=== PATIENT | female | born 1960 | race Caucasian/White ===

== ENCOUNTER 2017-12-02 15:11 | Emergency (ER) | payer MEDICAID ==
[~2017-12-02] VITALS: Ht 165.1 cm; Wt 52.2 kg
[~2017-12-02 15:11] MED LIST: ABILIFY2 MG ORAL; NORCO 5-325 TA1 EACH ORAL; TRAZODONE HCL150 MG ORAL; VENLAFAXINE H37.5 M1 ORAL
--- NOTE | 2017-12-02 15:33 | Emergency Room Report ---
History of Present Illness General Chief Complaint: Lower Extremity Injury Source: Patient Present Illness HPI 57-year-old female patient presents ER complaining of right lower extremity pain for the past 10 days. Reports that she fell onto her right side from a squatted position 10 days ago while feeling dizzy. Reports history of feeling dizzy, states that when she squats down symptoms improve when she stands up they worsen. Denies hitting her head, vision loss, tinnitus, vomiting. Denies chest pain, shortness of breath, abdominal pain. Denies history of heart attack or stroke. Not taking any blood thinners. Reports came to the ER today with her friend advised her to, states that she was waiting to go see her doctor in [place] but was unable to get an appointment sooner so she agreed to come into the ER today. Reports pain with ambulation. Reports pain on in her right side of thigh. Denies fever. Reports hx of PTSD, takes trazodone and Abilify, seen by outpatient clinic for treatment. Denies dysuria, hematuria, frequency, vaginal discharge. DEnies hx of diabetes. Allergies: Coded Allergies: NO KNOWN DRUG ALLERGIES (Unverified Allergy, Unknown, 09/05/14) Patient History Past Medical History: see triage record Last Menstrual Period: NA Reviewed Nursing Documentation: PMH: Agreed; PSxH: Agreed Nursing Documentation-PMH Past Medical History: No Stated History Review of Systems All Other Systems: negative except mentioned in HPI Physical Exam Vital Signs Date Time Temp Pulse Resp B/P (MAP) Pulse Ox O2 Delivery O2 Flow Rate FiO2 12/02/17 15:16 97.8 118 18 119/74 96 Room Air 97.9 Sp02 EP Interpretation: reviewed, normal General Appearance: well appearing, no apparent distress, alert, GCS 15, non- toxic Head: normocephalic, atraumatic Eyes: bilateral eye normal inspection, bilateral eye PERRL ENT: hearing grossly normal, normal pharynx, no angioedema, normal voice, uvula midline, moist mucus membranes Neck: full range of motion Respiratory: lungs clear, normal breath sounds, no rhonchi, no respiratory distress, no accessory muscle use, no wheezing, speaking full sentences Cardiovascular #1: regular rate, rhythm, no edema Gastrointestinal: non tender, soft, no mass, non-distended, no guarding, no rebound Genitourinary: no CVA tenderness Musculoskeletal: back normal, digits/nails normal, gait/station normal, normal range of motion, no calf tenderness, pelvis stable, Josh's Sign negative, other - NVI, no leg length discrepancy, leg not held in abduction or abduction, tender - proximal rights inner thigh, no erythema or edema Neurologic: alert, oriented x3, responsive, motor strength/tone normal, SLR negative, sensory intact Psychiatric: mood/affect normal Skin: no rash Medical Decision Making PA Attestation Dr. Rodarte is my supervising Physician whom patient management has been discussed with. Diagnostic Impression: Primary Impression: Intertrochanteric fracture Additional Impressions: UTI (urinary tract infection) Hx of dizziness ER Course Pt. presents to the ED c/o right leg pain status post dizziness causing fall. Denies dizziness currently. Ddx considered but are not limited to sprain, strain, fracture, dislocation, orthostatic hypotension, LA, electrolyte abnormality, dehydration. Vital signs: are WNL, pt. is afebrile, patient is tachycardic, denies chest pain , shortness of breath, abdominal pain. Ordered EKG. ER COURSE: EKG shows sinus tachycardia, no ST elevations or atrial fibrillation, will order cardiac labs to further evaluate tachycardia and history of dizziness. ordered chest x-ray, cardiac labs and fluids. orthostatic vitals showed no orthostatic hypotension. Provided with pain medication. An X-ray of the pelvis shows intertrochanteric fracture An X-ray of the femur right shows intertrochanteric fracture Discussed results with patient. Will admit patient for fracture. Needs orthopedic evaluation. Elevated pulse possibly due to pain follow-up with primary care provider for further cardiac referral and evaluation. CXR negative for acute disease per the preliminary reading. CBC no elevation in WBCs, H&H normal CMP unremarkable, mild elevation of LFTs and alkaline phosphatase, likely due to fracture UA shows elevation WBCs and urine bacteria, probable UTI, will provide patient with first dose of antibiotics in the ER, will provide with shot of Rocephin. Troponin negative CK CK-MB within normal limits Cranial nerves intact assessment, no focal neural deficits, EOMs intact, denies vertigo, denies dizziness currently, low suspicion for intracranial pathology, does not require CT of head at this time. Due to chronicity of dizziness symptoms, no ST elevations noted on EKG, troponin negative, will require admission for further workup. recheck vitals, patient will longer tachycardic, initial tachycardia may have been related to pain. Due to insurance patient to be transferred to another hospital to care of Dr. Josue. consult with Dr. Josue, will accept patient. - Please note that this Emergency Department Report was dictated using [employer] DX[employer]ior service aide technology software, occasionally this can lead to erroneous entry secondary to interpretation by the dictation equipment. Labs Test 12/02/17 16:15 White Blood Count 7.4 K/UL (4.8-10.8) Red Blood Count 5.27 M/UL (4.20-5.40) Hemoglobin 14.0 G/DL (12.0-16.0) Hematocrit 44.1 % (37.0-47.0) Mean Corpuscular Volume 84 FL (80-99) Mean Corpuscular Hemoglobin 26.6 PG (27.0-31.0) Mean Corpuscular Hemoglobin Concent 31.8 G/DL (32.0-36.0) Red Cell Distribution Width 12.8 % (11.6-14.8) Platelet Count 309 K/UL (150-450) Mean Platelet Volume 6.0 FL (6.5-10.1) Neutrophils (%) (Auto) 62.5 % (45.0-75.0) Lymphocytes (%) (Auto) 26.5 % (20.0-45.0) Monocytes (%) (Auto) 5.8 % (1.0-10.0) Eosinophils (%) (Auto) 3.3 % (0.0-3.0) Basophils (%) (Auto) 1.9 % (0.0-2.0) Urine Color Cyndi Urine Appearance Slightly cloudy Urine pH 5 (4.5-8.0) Urine Specific Page 1.025 (1.005-1.035) Urine Protein 1+ (NEGATIVE) Urine Glucose (UA) Negative (NEGATIVE) Urine Ketones Negative (NEGATIVE) Urine Blood 1+ (NEGATIVE) Urine Nitrite Negative (NEGATIVE) Urine Bilirubin 1+ (NEGATIVE) Urine Ictotest Negative (NEGATIVE) Urine Urobilinogen 1 MG/DL (0.0-1.0) Urine Leukocyte Esterase 3+ (NEGATIVE) Urine RBC 2-4 /HPF (0 - 2) Urine WBC 30-40 /HPF (0 - 2) Urine Squamous Epithelial Cells Many /LPF (NONE/OCC) Urine Calcium Oxalate Crystals Many /LPF (NONE) Urine Bacteria Moderate /HPF (NONE) Sodium Level 139 MMOL/L (136-145) Potassium Level 4.0 MMOL/L (3.5-5.1) Chloride Level 102 MMOL/L (98-107) Carbon Dioxide Level 32 MMOL/L (21-32) Anion Gap 5 mmol/L (5-15) Blood Urea Nitrogen 14 mg/dL (7-18) Creatinine 0.9 MG/DL (0.55-1.30) Estimat Glomerular Filtration Rate > 60 mL/min (>60) Glucose Level 140 MG/DL (74-106) Calcium Level 10.6 MG/DL (8.5-10.1) Total Bilirubin 0.3 MG/DL (0.2-1.0) Aspartate Amino Transf (AST/SGOT) 64 U/L (15-37) Alanine Aminotransferase (ALT/SGPT) 103 U/L (12-78) Alkaline Phosphatase 173 U/L (46-116) Total Creatine Kinase 28 U/L (26-308) Creatine Kinase MB 0.5 NG/ML (0.0-3.6) Creatine Kinase MB Relative Index 1.7 Troponin I 0.000 ng/mL (0.000-0.056) Total Protein 7.7 G/DL (6.4-8.2) Albumin 3.1 G/DL (3.4-5.0) Globulin 4.6 g/dL Albumin/Globulin Ratio 0.7 (1.0-2.7) EKG Diagnostic Results Rate: tachycardiac Rhythm: NSR ST Segments: no acute changes ASA given to the pt in ED: No PA Scribe Text Mateusz Anna PA-C Rhythm Strip Diag. Results EP Interpretation: yes Rate: 111 Rhythm: NSR, no PVC's, no ectopy PA Scribe Text Mateusz Anna PA-C Chest X-Ray Diagnostic Results Chest X-Ray Diagnostic Results : Chest X-Ray Ordered: Yes # of Views/Limited/Complete: 1 View Indication: Chest Pain EP Interpretation: Yes PA Xray: Interpretation reviewed, by supervising MD, and agrees with findings. Interpretation: no consolidation, no effusion, no pneumothorax, no acute cardiopulmonary disease Impression: No acute disease PA Scribe Text Mateusz Anna PA-C Other X-Ray Diagnostic Results Other X-Ray Diagnostic Results #1: X-Ray ordered: right femur # of Views/Limited Vs Complete: 2 View Indication: Pain EP Interpretation: Yes PA Xray: Interpretation reviewed, by supervising MD, and agrees with findings. Interpretation: no dislocation, no soft tissue swelling, other - Nondisplaced intertrochanteric right hip fracture. Impression: Other - Nondisplaced intertrochanteric right hip fracture. PA Scribe Text Mateusz Anna PA-C Other X-Ray Diagnostic Results #2: X-Ray ordered: pelvis # of Views/Limited Vs Complete: 1 View Indication: Pain EP Interpretation: Yes PA Xray: Interpretation reviewed, by supervising MD, and agrees with findings. Interpretation: no dislocation, no soft tissue swelling, other - Nondisplaced intertrochanteric right hip fracture. Impression: No acute disease PA Scribe Text Mateusz Anna PA-C Last Vital Signs Date Time Temp Pulse Resp B/P (MAP) Pulse Ox O2 Delivery O2 Flow Rate FiO2 12/02/17 15:16 97.8 118 18 119/74 96 Room Air 97.9 Disposition: [facility] Condition: Serious Ji Anna Dec 02, 2017 15:33
[2017-12-02] MEDS ORDERED: Sodium Chloride 500ML 500 ML IV ONE (15:44)
--- NOTE | 2017-12-02 16:18 | Diagnostic Imaging Report ---
EXAM: XR Right Femur, 2 Views CLINICAL HISTORY: PAIN TECHNIQUE: Frontal and lateral views of the right femur. COMPARISON: X-ray of the pelvis dated 12/02/17 FINDINGS: Bones/joints: Nondisplaced intertrochanteric right hip fracture. No other fracture or dislocation identified. Soft tissues: Unremarkable. IMPRESSION: Nondisplaced intertrochanteric right hip fracture.
--- NOTE | 2017-12-02 16:20 | Diagnostic Imaging Report ---
EXAM: XR Chest, 1 View CLINICAL HISTORY: PAIN TECHNIQUE: Frontal view of the chest. COMPARISON: No relevant prior studies available. FINDINGS: Lungs: Unremarkable. The lungs appear clear. No confluent pulmonary opacities. Pleural space: Unremarkable. The costophrenic angles are sharp. No visible pneumothorax. Heart: Unremarkable. No cardiomegaly. Mediastinum: Unremarkable. Bones/joints: Unremarkable. IMPRESSION: Unremarkable chest x-ray.
--- NOTE | 2017-12-02 16:20 | Diagnostic Imaging Report ---
EXAM: XR Pelvis, 1 or 2 Views CLINICAL HISTORY: PAIN TECHNIQUE: Frontal view of the pelvis. COMPARISON: Right femur x-rays dated 12/02/17 FINDINGS: Bones/joints: Nondisplaced intertrochanteric right hip fracture. Left hip and proximal femur appear unremarkable. The pelvic and obturator rings appear intact. SI joints and symphysis pubis appear unremarkable. Mild degenerative changes at the lumbosacral junction. Soft tissues: Unremarkable. Vasculature: Punctate phleboliths in the pelvis bilaterally. IMPRESSION: Nondisplaced intertrochanteric right hip fracture.
[2017-12-02 16:42] LABS: APPEARANCE,URINE SLIGHTLY CLOUDY; BILIRUBIN, URINE 1+ (NEGATIVE); COLOR,URINE AMBER; GLUCOSE, URINE (UA) NEGATIVE (NEGATIVE); KETONES,URINE NEGATIVE (NEGATIVE); LEUKOCYTE ESTERASE ,URINE 3+ (NEGATIVE); NITRITE,URINE NEGATIVE (NEGATIVE); PH,URINE 5 (4.5-8.0); PROTEIN,URINE 1+ (NEGATIVE); UROBILINOGEN,URINE 1 MG/DL (0.0-1.0)
[2017-12-02 16:44] LABS: BASOPHILS % (AUTO) 1.9 % (0.0-2.0); EOSINOPHILS % (AUTO) 3.3 % (0.0-3.0); HEMATOCRIT 44.1 % (37.0-47.0); LYMPHOCYTES % (AUTO) 26.5 % (20.0-45.0); MEAN CORPUSCULAR VOLUME 84 FL (80-99); MONOCYTES % (AUTO) 5.8 % (1.0-10.0); NEUTROPHILS % (AUTO) 62.5 % (45.0-75.0); PLATELET COUNT 309 K/UL (150-450); RED BLOOD COUNT 5.27 M/UL (4.20-5.40); RED CELL DISTRIBUTION WIDTH 12.8 % (11.6-14.8); WHITE BLOOD COUNT 7.4 K/UL (4.8-10.8)
[2017-12-02 16:49] LABS: ANION GAP 5 mmol/L (5-15); BLOOD UREA NITROGEN 14 mg/dL (7-18); CALCIUM 10.6 MG/DL (8.5-10.1); CARBON DIOXIDE 32 MMOL/L (21-32); CHLORIDE 102 MMOL/L (98-107); CREATININE 0.9 MG/DL (0.55-1.30); SODIUM 139 MMOL/L (136-145)
[2017-12-02 17:03] LABS: ALANINE AMINOTRANSFERASE 103 U/L (12-78); ALBUMIN 3.1 G/DL (3.4-5.0); ALBUMIN/GLOBULIN RATIO 0.7 (1.0-2.7); ALKALINE PHOSPHATASE 173 U/L (46-116); ASPARTATE AMINO TRANSFERASE 64 U/L (15-37); BILIRUBIN,TOTAL 0.3 MG/DL (0.2-1.0); CKMB 0.5 NG/ML (0.0-3.6); CREATINE KINASE 28 U/L (26-308)
[2017-12-02 17:36] VITALS: BP 106/67
[2017-12-02] MEDS ORDERED: Lidocaine 1% MPF 10mg/ml 5ml INJ ONE (17:45)
[2017-12-02 18:08] VITALS: BP 118/64
[2017-12-02 19:42] VITALS: BP 116/74
--- NOTE | 2017-12-05 17:35 | Cardiology Report ---
APPROVED REPORT EKG Measurement Heart [id number] Sinus tachycardia Right atrial enlargement Borderline ECG
== END 2017-12-02 19:45 | disposition short-term general hospital (02) ==
LOC: EMR 15:32
DX: S72.141A Displaced intertrochanteric fracture of right femur, initial encounter for closed fracture (principal); W18.30XA Fall on same level, unspecified, initial encounter; Y92.89 Other specified places as the place of occurrence of the external cause; N39.0 Urinary tract infection, site not specified; F17.200 Nicotine dependence, unspecified, uncomplicated; R42 Dizziness and giddiness; R00.0 Tachycardia, unspecified; R07.9 Chest pain, unspecified; R10.2 Pelvic and perineal pain; R74.8 Abnormal levels of other serum enzymes
CPT/HCPCS: 36415; 71045; 72170; 73552; 80053; 81003; 82550; 82553; 84484; 85025; 87086; 87181; 93005; 96372; 99285; J0696; J7040